=== PATIENT | male | born 1965 | race Caucasian/White ===

== ENCOUNTER 2023-12-02 16:22 | Inpatient (IN) | payer MEDICAID, OTHER ==
[~2023-12-02] VITALS: Ht 177.8 cm; Wt 68.0 kg
[~2023-12-02 16:22] MED LIST: PANT40TA51 MT
[2023-12-02 17:24] LABS: HEMATOCRIT. 23.3 % (42.0-52.0); HEMOGLOBIN. 7.4 g/dL (14.0-18.0); MEAN CORPUSCULAR HEMOGLOBIN 28.4 pg (28.0-32.0); MEAN CORPUSCULAR HGB CONC 31.9 g/dL (31.0-37.0); MEAN CORPUSCULAR VOLUME 89.1 fL (80.0-94.0); MEAN PLATELET VOLUME 6.9 fl (7.4-10.4); PLATELET 427 x1000/uL (130-400); RED BLOOD CELL COUNT 2.61 mill/uL (4.7-6.1); RED CELL DISTRIBUTION WIDTH 21.2 % (11.6-14.6); WHITE BLOOD COUNT 11.3 x1000/uL (4.5-11.0)
[2023-12-02 17:28] LABS: DIFFERENTIAL COMMENT 1
[2023-12-02 17:31] LABS: INR 1.2; PROTHROMBIN TIME 13.6 sec (9.6-11.0)
[2023-12-02 17:35] LABS: ALANINE AMINOTRANSFERASE 22 IU/L (10-49); ALBUMIN 2.6 g/dL (3.2-4.8); ASPARTATE AMINOTRANSFERASE 97 IU/L (<34); BILIRUBIN TOTAL 1.3 mg/dL (0.1-1.0); CALCIUM 7.6 mg/dL (8.7-10.4); CARBON DIOXIDE 25 mEq/L (21-32); CHLORIDE 99 mEq/L (98-107); CREATININE 0.5 mg/dL (0.6-1.3); GLUCOSE 85 mg/dL (70-105); POTASSIUM 4.7 mEq/L (3.5-5.1); PROTEIN TOTAL 5.6 g/dL (6.0-8.3); SODIUM 131 mEq/L (136-145); UREA NITROGEN BLOOD 17 mg/dL (9-23)
[2023-12-02 20:15] LABS: ANISOCYTOSIS 2+; HYPOCHROMASIA 1+; PLATELET ESTIMATE SLIGHTLY INCREASED
[2023-12-02 22:32] VITALS: BP 86/57; PULSE 86; RESP 23; TEMP 98.8
[2023-12-02 23:00] VITALS: BP 98/60; PULSE 86; RESP 18
[2023-12-02 23:50] VITALS: BP 86/57; PULSE 73; RESP 23; TEMP 98.8
[2023-12-03] VITALS (14 sets, daily range): BP systolic 88–130; BP diastolic 58–68; PULSE 72–98; RESP 16–23; TEMP 97.8–98.6
[2023-12-03] MEDS: SODIUM CHLORIDE 0.9% 1,000 ML IV SCH (02:26)
[2023-12-03 06:14] LABS: BASOPHILS % 0.4 % (0.0-2.0); EOSINOPHILS % 0.4 % (0.0-5.0); HEMATOCRIT. 23.8 % (42.0-52.0); HEMOGLOBIN. 7.9 g/dL (14.0-18.0); LYMPHOCYTES % 7.9 % (20.0-50.0); MEAN CORPUSCULAR HEMOGLOBIN 28.9 pg (28.0-32.0); MEAN CORPUSCULAR HGB CONC 33.1 g/dL (31.0-37.0); MEAN CORPUSCULAR VOLUME 87.2 fL (80.0-94.0); MEAN PLATELET VOLUME 6.9 fl (7.4-10.4); MONOCYTES % 7.7 % (2.0-8.0); NEUTROPHILS % 83.6 % (40.0-76.0); PLATELET 362 x1000/uL (130-400); RED BLOOD CELL COUNT 2.73 mill/uL (4.7-6.1); RED CELL DISTRIBUTION WIDTH 18.6 % (11.6-14.6); WHITE BLOOD COUNT 10.6 x1000/uL (4.5-11.0)
[2023-12-03 06:18] LABS: CALCIUM 6.9 mg/dL (8.7-10.4); CARBON DIOXIDE 23 mEq/L (21-32); CHLORIDE 101 mEq/L (98-107); CREATININE 0.4 mg/dL (0.6-1.3); GLUCOSE 82 mg/dL (70-105); POTASSIUM 3.8 mEq/L (3.5-5.1); SODIUM 132 mEq/L (136-145); UREA NITROGEN BLOOD 20 mg/dL (9-23)
[2023-12-03] MEDS: HYDROCODONE/ACETAMINOPHEN 5/325MG TABLET PO PRN (10:43)
[2023-12-03] MEDS ORDERED: NALOXONE HCL 0.4MG/ML VIAL IV PRN (12:30)
[2023-12-03] MEDS: PANTOPRAZOLE SODIUM 40 MG/VIAL IV SCH (13:45)
[2023-12-03] MEDS: DIPHENOXYLATE/ATROPINE 2.5/0.025MG TABLET PO PRN (13:45)
[2023-12-03 13:58] LABS: IRON 13 ug/dL (65-175); TOTAL IRON BINDING CAPACITY 166 ug/dl (250-425)
[2023-12-03 15:35] LABS: FERRITIN 40 ng/mL (22-322); FOLIC ACID (FOLATE) SERUM 9.01 ng/mL (>5.38)
[2023-12-03 15:36] LABS: VITAMIN B12 SERUM > 2000 pg/mL (211-911)
[2023-12-04] VITALS (9 sets, daily range): BP systolic 100–130; BP diastolic 52–64; PULSE 81–88; RESP 16–20; TEMP 97.2–98.2
[2023-12-04 02:52] LABS: BASOPHILS % 0.7 % (0.0-2.0); EOSINOPHILS % 0.8 % (0.0-5.0); HEMATOCRIT. 21.9 % (42.0-52.0); HEMOGLOBIN. 7.4 g/dL (14.0-18.0); LYMPHOCYTES % 10.9 % (20.0-50.0); MEAN CORPUSCULAR HEMOGLOBIN 28.9 pg (28.0-32.0); MEAN CORPUSCULAR HGB CONC 33.6 g/dL (31.0-37.0); MEAN CORPUSCULAR VOLUME 86.1 fL (80.0-94.0); MEAN PLATELET VOLUME 6.4 fl (7.4-10.4); NEUTROPHILS % 80.6 % (40.0-76.0); PLATELET 351 x1000/uL (130-400); RED BLOOD CELL COUNT 2.54 mill/uL (4.7-6.1); RED CELL DISTRIBUTION WIDTH 18.8 % (11.6-14.6); WHITE BLOOD COUNT 7.5 x1000/uL (4.5-11.0)
[2023-12-04 03:26] LABS: INR 1.3; PROTHROMBIN TIME 14.5 sec (9.6-11.0)
[2023-12-04 05:02] LABS: HEPATITIS C AB NON REACTIVE (Neg) (Negative)
[2023-12-04 11:07] LABS: CALCIUM 6.7 mg/dL (8.7-10.4); CARBON DIOXIDE 22 mEq/L (21-32); CHLORIDE 104 mEq/L (98-107); CREATININE 0.4 mg/dL (0.6-1.3); GLUCOSE 67 mg/dL (70-105); POTASSIUM 3.7 mEq/L (3.5-5.1); SODIUM 132 mEq/L (136-145); UREA NITROGEN BLOOD 20 mg/dL (9-23)
[2023-12-04] MEDS ORDERED: HYDROMORPHONE HCL/PF 2MG/ML CPJ IV PRN (15:00)
[2023-12-04] MEDS ORDERED: LABETALOL 5MG/ML SYR 20 MG/4 ML SYRINGE IV PRN (15:00)
[2023-12-04] MEDS ORDERED: ONDANSETRON HCL 4MG/2ML INJ IV PRN (15:00)
[2023-12-04] MEDS ORDERED: MEPERIDINE HCL/PF 25MG/ML CPJ IV PRN (15:00)
[2023-12-04 16:02] LABS: HEPATITIS B SURFACE ANTIGEN NEGATIVE (Negative)
[2023-12-04] MEDS: SUCRALFATE 1G TABLET PO SCH (16:45)
[2023-12-04] MEDS: ONDANSETRON HCL 4MG/2ML INJ IV PRN (18:33)
[2023-12-04 20:47] LABS: HEMATOCRIT 27.5 % (42.0-52.0)
[2023-12-05] VITALS (10 sets, daily range): BP systolic 112–129; BP diastolic 53–80; PULSE 72–88; RESP 16–20; TEMP 96.8–98.9
[2023-12-05 06:14] LABS: BASOPHILS % 0.7 % (0.0-2.0); EOSINOPHILS % 0.7 % (0.0-5.0); HEMATOCRIT. 22.4 % (42.0-52.0); HEMOGLOBIN. 7.4 g/dL (14.0-18.0); LYMPHOCYTES % 15.3 % (20.0-50.0); MEAN CORPUSCULAR VOLUME 87.9 fL (80.0-94.0); MEAN PLATELET VOLUME 6.7 fl (7.4-10.4); MONOCYTES % 7.7 % (2.0-8.0); NEUTROPHILS % 75.6 % (40.0-76.0); PLATELET 340 x1000/uL (130-400); RED BLOOD CELL COUNT 2.55 mill/uL (4.7-6.1); WHITE BLOOD COUNT 6.1 x1000/uL (4.5-11.0)
[2023-12-05 06:29] LABS: BILIRUBIN TOTAL 2.1 mg/dL (0.1-1.0); CALCIUM 6.8 mg/dL (8.7-10.4); CARBON DIOXIDE 22 mEq/L (21-32); CHLORIDE 104 mEq/L (98-107); CREATININE 0.5 mg/dL (0.6-1.3); GLUCOSE 68 mg/dL (70-105); POTASSIUM 3.4 mEq/L (3.5-5.1); SODIUM 132 mEq/L (136-145); UREA NITROGEN BLOOD 15 mg/dL (9-23)
[2023-12-05] MEDS: POTASSIUM CHLORIDE 20MEQ TABLET SR PO NR (13:10)
[2023-12-05 21:47] LABS: HEMATOCRIT 26.1 % (42.0-52.0); HEMOGLOBIN 8.5 g/dL (14.0-18.0)
[2023-12-05 21:53] LABS: INR 1.5; PROTHROMBIN TIME 15.9 sec (9.6-11.0)
[2023-12-06 04:00] VITALS: BP 130/67; PULSE 74; RESP 18; TEMP 98
[2023-12-06 07:17] LABS: BASOPHILS % 0.7 % (0.0-2.0); EOSINOPHILS % 0.6 % (0.0-5.0); HEMATOCRIT. 26.1 % (42.0-52.0); HEMOGLOBIN. 8.4 g/dL (14.0-18.0); LYMPHOCYTES % 9.5 % (20.0-50.0); MEAN CORPUSCULAR HGB CONC 32.2 g/dL (31.0-37.0); MEAN PLATELET VOLUME 6.7 fl (7.4-10.4); MONOCYTES % 7.5 % (2.0-8.0); NEUTROPHILS % 81.7 % (40.0-76.0); PLATELET 326 x1000/uL (130-400); RED CELL DISTRIBUTION WIDTH 18.5 % (11.6-14.6); WHITE BLOOD COUNT 6.2 x1000/uL (4.5-11.0)
[2023-12-06 07:37] LABS: BILIRUBIN TOTAL 2.2 mg/dL (0.1-1.0); CALCIUM 6.4 mg/dL (8.7-10.4); CARBON DIOXIDE 19 mEq/L (21-32); CHLORIDE 107 mEq/L (98-107); GLUCOSE 74 mg/dL (70-105); POTASSIUM 3.3 mEq/L (3.5-5.1); SODIUM 132 mEq/L (136-145); UREA NITROGEN BLOOD 10 mg/dL (9-23)
[2023-12-06 08:00] VITALS: BP 134/68; PULSE 73; RESP 18; TEMP 97.9
[2023-12-06 08:07] LABS: CREATININE 0.3 mg/dL (0.6-1.3)
[2023-12-06] MEDS: POTASSIUM CHLORIDE 20MEQ/PACKET PO SCH (10:45)
[2023-12-06] MEDS ORDERED: SUCR1TAB30 PO (11:10)
[2023-12-06 12:00] VITALS: BP 115/63; PULSE 73; RESP 18; TEMP 98.1
[2023-12-06 16:00] VITALS: BP 118/66; PULSE 74; RESP 18; TEMP 97.6
[2023-12-06 16:30] VITALS: BP 135/72; PULSE 72; TEMP 98; O2SAT 98
== END 2023-12-06 17:33 | disposition home or self-care (01) | DRG 240 ==
LOC: ER 16:22 → 5EST 19:28 → EDBEDREQ 19:40 → EDBEDREQTM 19:40 → EDBEDREQSVC 19:40 → 8WST 12-03 19:42
PROVIDERS: ADMIT Internal Medicine; ATTEND Internal Medicine
PROC: 30233N1 Transfusion of Nonautologous Red Blood Cells into Peripheral Vein, Percutaneous Approach (ICD-10-PCS; 2023-12-02)
PROC: 0DB68ZX Excision of Stomach, Via Natural or Artificial Opening Endoscopic, Diagnostic (ICD-10-PCS; principal; 2023-12-04)
DX: C16.9 Malignant neoplasm of stomach, unspecified (principal); C18.9 Malignant neoplasm of colon, unspecified; R18.8 Other ascites; E88.09 Other disorders of plasma-protein metabolism, not elsewhere classified; K56.7 Ileus, unspecified; C78.7 Secondary malignant neoplasm of liver and intrahepatic bile duct; K74.60 Unspecified cirrhosis of liver; K92.2 Gastrointestinal hemorrhage, unspecified; D63.0 Anemia in neoplastic disease; K21.9 Gastro-esophageal reflux disease without esophagitis; D72.829 Elevated white blood cell count, unspecified; Z87.891 Personal history of nicotine dependence; E11.9 Type 2 diabetes mellitus without complications; E78.5 Hyperlipidemia, unspecified; Z79.4 Long term (current) use of insulin
CPT/HCPCS: 36415; 71045; 74176; 80048; 80053; 82247; 82607; 82728; 82746; 83540; 83550; 85014; 85018; 85025; 85044; 85049; 86705; 86850; 86900; 86920; 87340; 88305; 88312; 88313; 93005; 93970; 99291; C9113; J2405; P9016

== ENCOUNTER 2024-01-01 12:40 | Emergency (ER) | payer MEDICAID, OTHER ==
[~2024-01-01] VITALS: Ht 154.9 cm; Wt 52.2 kg
[~2024-01-01 12:40] MED LIST changes: +CAPE500T15 PO; +SUCR1TAB30 PO
[2024-01-01 13:00] VITALS: BP 98/64; RESP 16; TEMP 98.2; O2SAT 100
[2024-01-01 13:01] VITALS: PULSE 100
[2024-01-01 14:51] LABS: BASOPHILS % 0.4 % (0.0-2.0); EOSINOPHILS % 0.2 % (0.0-5.0); HEMATOCRIT. 35.9 % (42.0-52.0); HEMOGLOBIN. 11.6 g/dL (14.0-18.0); LYMPHOCYTES % 24.4 % (20.0-50.0); MEAN CORPUSCULAR HGB CONC 32.3 g/dL (31.0-37.0); MEAN CORPUSCULAR VOLUME 89.6 fL (80.0-94.0); MEAN PLATELET VOLUME 7.2 fl (7.4-10.4); MONOCYTES % 8.1 % (2.0-8.0); NEUTROPHILS % 66.9 % (40.0-76.0); PLATELET 306 x1000/uL (130-400); RED BLOOD CELL COUNT 4.01 mill/uL (4.7-6.1); WHITE BLOOD COUNT 4.7 x1000/uL (4.5-11.0)
[2024-01-01 14:58] LABS: ADD RBC MORPHOLOGY YES; DIFFERENTIAL COMMENT 1
[2024-01-01 15:12] LABS: ALANINE AMINOTRANSFERASE 23 IU/L (10-49); ASPARTATE AMINOTRANSFERASE 55 IU/L (<34); BILIRUBIN TOTAL 0.9 mg/dL (0.1-1.0); CALCIUM 8.1 mg/dL (8.7-10.4); CARBON DIOXIDE 27 mEq/L (21-32); CHLORIDE 97 mEq/L (98-107); CREATININE 0.8 mg/dL (0.6-1.3); GLUCOSE 125 mg/dL (70-105); POTASSIUM 4.8 mEq/L (3.5-5.1); PROTEIN TOTAL 6.7 g/dL (6.0-8.3); SODIUM 133 mEq/L (136-145); UREA NITROGEN BLOOD 30 mg/dL (9-23)
[2024-01-01 15:59] LABS: PLATELET ESTIMATE NORMAL
[2024-01-01 16:00] LABS: ANISOCYTOSIS 2+
[2024-01-01] MEDS ORDERED: ONDANSETRON 4MG ODT PO ONE (20:30)
== END 2024-01-01 13:20 | disposition left against medical advice (07) ==
LOC: ER 12:53
DX: R10.9 Unspecified abdominal pain (principal); Z53.21 Procedure and treatment not carried out due to patient leaving prior to being seen by health care provider
CPT/HCPCS: 36415; 80053; 85025; 93005; 99281